=== PATIENT | female | born 1970 | race Two or more races ===

== ENCOUNTER 2021-06-09 23:48 | Emergency (ER) | payer OTHER ==
[~2021-06-09] VITALS: Ht 149.9 cm; Wt 104.3 kg
[2021-06-10] MEDS ORDERED: PROAIR RESPICL90 MCG IH (00:09)
[2021-06-10] MEDS ORDERED: ZESTRIL2.5 MG PO (00:09)
[2021-06-10] MEDS ORDERED: ACID REDUCER20 M1 PO (00:10)
[2021-06-10] MEDS ORDERED: CLONAZEPAM1 GM PO (00:10)
[2021-06-10] MEDS ORDERED: PEPCID20 MG PO (00:10)
[2021-06-10] MEDS ORDERED: GRALISE600 MG PO (00:10)
[2021-06-10] MEDS ORDERED: SYMBICORT 16010.2 GM IH (03:22)
[2021-06-10] MEDS ORDERED: ALBUTEROL2.5 MG/3 M IH (03:22)
[2021-06-10] MEDS ORDERED: ZYNCOF 20-400120 ML PO (03:22)
== END 2021-06-10 03:36 | disposition home or self-care (01) ==
LOC: ER 23:48
DX: J40 Bronchitis, not specified as acute or chronic (principal); Z11.52 Encounter for screening for COVID-19

== ENCOUNTER → 2022-02-11 | Emergency (ER) | payer OTHER ==
[~2022-02-11] VITALS: Ht 152.4 cm; Wt 113.4 kg
[~2022-02-11] MED LIST: ACID REDUCER20 M1 PO; ALBUTEROL2.5 MG/3 M IH; BREZTRI AEROS10.7 GM; CLONAZEPAM1 GM PO; GRALISE600 MG PO; PEPCID20 MG PO; PROAIR RESPICL90 MCG IH; SYMBICORT 16010.2 GM IH; ZESTRIL2.5 MG PO; ZYNCOF 20-400120 ML PO
== END | disposition home or self-care (01) ==
LOC: ER
DX: M79.671 Pain in right foot (principal); M20.11 Hallux valgus (acquired), right foot; M79.604 Pain in right leg; M79.605 Pain in left leg

== ENCOUNTER 2022-02-12 07:54 | Emergency (ER) | payer OTHER ==
[~2022-02-12] VITALS: Ht 152.4 cm; Wt 108.9 kg
== END 2022-02-12 11:38 | disposition home or self-care (01) ==
LOC: ER 07:54
DX: I87.2 Venous insufficiency (chronic) (peripheral) (principal); Z88.6 Allergy status to analgesic agent; Z88.0 Allergy status to penicillin; Z91.013 Allergy to seafood; I10 Essential (primary) hypertension

== ENCOUNTER 2022-02-21 18:07 | Emergency (ER) | payer OTHER ==
[~2022-02-21] VITALS: Ht 152.4 cm; Wt 90.7 kg
== END 2022-02-21 22:52 | disposition home or self-care (01) ==
LOC: ER 18:07
DX: A08.39 Other viral enteritis (principal); I10 Essential (primary) hypertension; Z88.0 Allergy status to penicillin; Z91.013 Allergy to seafood

== ENCOUNTER 2022-11-08 13:32 | Emergency (ER) | payer OTHER ==
[~2022-11-08] VITALS: Ht 149.9 cm; Wt 108.0 kg
== END 2022-11-08 18:06 | disposition home or self-care (01) ==
LOC: ER 13:32
DX: M94.0 Chondrocostal junction syndrome [Tietze] (principal); M62.838 Other muscle spasm; M77.31 Calcaneal spur, right foot; M77.32 Calcaneal spur, left foot; R53.81 Other malaise; I10 Essential (primary) hypertension; Z88.0 Allergy status to penicillin; Z88.6 Allergy status to analgesic agent; Z91.013 Allergy to seafood

== ENCOUNTER 2023-05-19 02:50 | Emergency (ER) | payer OTHER ==
[~2023-05-19] VITALS: Ht 149.9 cm; Wt 104.3 kg
[2023-05-19 09:05] LABS: HEMATOCRIT 33.7 % (36.0-45.00); HEMOGLOBIN 11.1 g/dL (12.0-15.00); MEAN CELL VOLUME 84.6 fL (80.00-100.00); MEAN CORPUSCULAR HEMOGLOBIN 27.8 pg (27.00-32.0); MEAN CORPUSCULAR HGB CONC 32.8 g/dl (32.0-36.0); PLATELET COUNT 328 K/uL (150-450); RED BLOOD COUNT 3.98 M/uL (4.00-6.00); RED CELL DISTRIBUTION WIDTH 14.5 % (11.5-14.5)
[2023-05-19 11:17] LABS: ABG PH 7.429 (7.35-7.45); ABG PO2 92.1 mmHg (80-100); BASE EXCESS 0 mmol/l; SaO2 97.4 %
[2023-05-19 11:18] LABS: Tco2 25.1 mmol/l; allen test SATISFACTORY; o2 21 %; puncture site RADIAL LEFT
== END 2023-05-19 12:50 | disposition home or self-care (01) ==
LOC: ER 02:50
PROVIDERS: General Practice
DX: J45.901 Unspecified asthma with (acute) exacerbation (principal); Z88.6 Allergy status to analgesic agent; Z88.0 Allergy status to penicillin; Z91.013 Allergy to seafood; Z20.822 Contact with and (suspected) exposure to COVID-19

== ENCOUNTER 2024-05-09 14:53 | Emergency (ER) | payer OTHER ==
[~2024-05-09] VITALS: Ht 149.9 cm; Wt 113.4 kg
[2024-05-09 15:18] VITALS: BP 116/67; O2SAT 99
[2024-05-09] MEDS ORDERED: FAMOTIDINE/PF 20 MG in 0.9 % SODIUM CHLORIDE 8 ML IV PUSH STA (16:23)
[2024-05-09] MEDS ORDERED: ONDANSETRON HCL 2 MG/ML VIAL IV ONE (16:30)
[2024-05-09] MEDS ORDERED: DIPHENOXYLATE HCL/ATROPINE 1 UDTAB TABLET PO ONE (16:30)
[2024-05-09] MEDS ORDERED: 0.9 % SODIUM CHLORIDE 1,000 ML IV SCH (16:30)
[2024-05-09 17:06] LABS: HEMATOCRIT 35.8 % (36.0-45.00); HEMOGLOBIN 11.4 g/dL (12.0-15.00); MEAN CELL VOLUME 82.4 fL (80.00-100.00); MEAN CORPUSCULAR HEMOGLOBIN 26.2 pg (27.00-32.0); MEAN CORPUSCULAR HGB CONC 31.8 g/dl (32.0-36.0); PLATELET COUNT 246 K/uL (150-450); RED BLOOD COUNT 4.34 M/uL (4.00-6.00)
[2024-05-09 17:17] LABS: URINE APPEARANCE Cloudy; URINE BILIRRUBIN Negative (NEGATIVE); URINE BLOOD Negative; URINE COLOR Yellow; URINE GLUCOSE Negative (NEGATIVE); URINE KETONE Negative (NEGATIVE); URINE LEUKOCYTE Negative; URINE NITRATE Negative; URINE PROTEIN Negative (NEGATIVE); URINE UROBILINOGEN 0.2 E.U./dl
[2024-05-09 17:18] LABS: URINE BACTERIA 777.2 uL (0.0-1933); URINE EPITHELIAL CELLS 21.5 uL (0.0-38.8); URINE RBC 17.6 uL (0.0-20.8)
[2024-05-09 17:27] LABS: ALBUMIN 3.3 gm/dL (3.4-5.0); BILIRUBIN TOTAL 0.2 mg/dL (0.3-1.2); CALCIUM 9.3 mg/dL (8.5-10.1); CREATININE SERUM 0.51 mg/dL (0.55-1.02); GFR 125.67; POTASSIUM 3.6 mEq/L (3.5-5.1); TOTAL PROTEIN 7.3 gm/dL (6.4-8.2)
[2024-05-09 17:28] LABS: URINE CAST 0.14 uL (0.0-1.40)
[2024-05-09] MEDS ORDERED: LEVSIN/SL0.125 MG SL (19:25)
[2024-05-09] MEDS ORDERED: PEPCID AC20 MG PO (19:25)
[2024-05-09] MEDS ORDERED: ONDANSETRON ODT8 MG PO (19:25)
[2024-05-09] MEDS ORDERED: INTESTINEX680 M1 PO (19:25)
== END 2024-05-09 19:39 | disposition home or self-care (01) ==
LOC: ER 14:55
PROVIDERS: General Practice
DX: R10.32 Left lower quadrant pain (principal); Z88.0 Allergy status to penicillin; Z91.013 Allergy to seafood; Z88.6 Allergy status to analgesic agent; K57.32 Diverticulitis of large intestine without perforation or abscess without bleeding; I10 Essential (primary) hypertension; Z20.822 Contact with and (suspected) exposure to COVID-19

== ENCOUNTER 2024-07-02 15:03 | Inpatient (IN) | payer OTHER ==
[~2024-07-02] VITALS: Ht 149.9 cm; Wt 113.4 kg
[~2024-07-02 15:03] MED LIST changes: +INTESTINEX680 M1 PO; +LEVSIN/SL0.125 MG SL; +ONDANSETRON ODT8 MG PO; +PEPCID AC20 MG PO
[2024-07-02] MEDS ORDERED: GLUMETZA500 MG PO (16:00)
--- NOTE | 2024-07-02 16:04 | NUR ---
PACIENTE ALERTA Y ORIENTADA X3. REFIERE VENIR POR TOS SECA PRODUCTIVA Y MALESTAR GENERAL. SE ESTIMAN VITALES Y SE UBICA. PACIENTE REFIERE QUE SALIO POSITIVA A INFLUENZA HACE UNOS FAIRCHILD.
[2024-07-02] MEDS ORDERED: 0.9 % SODIUM CHLORIDE 1,000 ML IV STA (17:07)
[2024-07-02] MEDS ORDERED: BUDESONIDE 0.5 MG/2 ML AMPUL.NEB IH STA (17:08)
[2024-07-02] MEDS ORDERED: IPRATROPIUM BROMIDE 0.5 MG/2.5 ML AMPUL.NEB IH STA (17:08)
[2024-07-02] MEDS ORDERED: LEVALBUTEROL HCL 1.25 MG/3 ML SOLUTION IH SCH (17:15)
[2024-07-02 18:03] LABS: HEMATOCRIT 38.4 % (36.0-45.00); HEMOGLOBIN 12.5 g/dL (12.0-15.00); MEAN CELL VOLUME 81.1 fL (80.00-100.00); MEAN CORPUSCULAR HEMOGLOBIN 26.5 pg (27.00-32.0); MEAN CORPUSCULAR HGB CONC 32.7 g/dl (32.0-36.0); PLATELET COUNT 339 K/uL (150-450); RED BLOOD COUNT 4.73 M/uL (4.00-6.00); RED CELL DISTRIBUTION WIDTH 14.4 % (11.5-14.5)
[2024-07-02] MEDS ORDERED: LEVALBUTEROL HCL 1.25 MG/3 ML SOLUTION IH ONE (18:09)
[2024-07-02] MEDS ORDERED: BUDESONIDE 0.5 MG/2 ML AMPUL.NEB IH ONE (18:09)
[2024-07-02] MEDS ORDERED: IPRATROPIUM BROMIDE 0.5 MG/2.5 ML AMPUL.NEB IH ONE (18:10)
[2024-07-02 18:16] LABS: ABG PH 7.438 (7.35-7.45); ABG PO2 77.4 mmHg (80-100); ABG pCO2 37.9 mmHg (35-45); BASE EXCESS 1.1 mmol/l; BICARBONATE 25.1 mmol/l (23-25); SaO2 95.8 %; Tco2 26.2 mmol/l
[2024-07-02 18:29] LABS: allen test SATISFACTORY; puncture site RADIAL RIGHT
[2024-07-02 18:30] LABS: o2 21 %
[2024-07-02 19:14] LABS: CALCIUM 9.9 mg/dL (8.5-10.1); CREATININE SERUM 0.68 mg/dL (0.55-1.02); GFR 90.17; POTASSIUM 3.58 mEq/L (3.5-5.1)
[2024-07-02] MEDS ORDERED: levoFLOXacin IN DEXTROSE 5 % 5 MG/ML PIGGYBAG IV STA (19:59)
[2024-07-02] MEDS ORDERED: METHYLPREDNISOLONE SOD SUCC 125 MG VIAL IV STA (19:59)
[2024-07-02] MEDS ORDERED: METHYLPREDNISOLONE SOD SUCC 125 MG VIAL ONE (20:16)
[2024-07-02] MEDS ORDERED: WATER FOR INJ.,BACTERIOSTATIC 30 ML VIAL IJ ONE (20:18)
[2024-07-03] MEDS ORDERED: DEXTROSE 50 % IN WATER 0.5 G/ML DISP.SYRIN IV PRN (00:45)
[2024-07-03] MEDS ORDERED: ACETAMINOPHEN 325 MG TABLET PO PRN (00:45)
[2024-07-03] MEDS ORDERED: INSULIN LISPRO 1,000 UNIT/10 ML UNITS SUBCUTANEO PRN (00:45)
[2024-07-03] MEDS ORDERED: 0.9 % SODIUM CHLORIDE 1,000 ML IV SCH (00:45)
[2024-07-03 01:00] VITALS: BP 122/80; O2SAT 97
[2024-07-03] MEDS ORDERED: IPRATROPIUM/ALBUTEROL SULFATE 3 ML AMPUL.NEB IH SCH (01:00)
[2024-07-03 04:33] VITALS: BP 135/75; O2SAT 97
[2024-07-03] MEDS ORDERED: METHYLPREDNISOLONE SOD SUCC 40 MG VIAL IV SCH (06:00)
[2024-07-03] MEDS ORDERED: LOSARTAN/HYDROCHLOROTHIAZIDE 1 TAB TABLET PO SCH (09:00)
[2024-07-03 09:07] VITALS: BP 150/80; O2SAT 97
[2024-07-03] MEDS ORDERED: VANCOMYCIN HCL 1,000 MG VIAL IV NR (10:30)
[2024-07-03] MEDS ORDERED: LACTOBACILLUS ACIDOPHILUS 1 CAP CAP PO SCH (17:00)
[2024-07-03 17:23] VITALS: BP 138/81; O2SAT 98
[2024-07-03 17:46] LABS: PH,URINE 7.5 (5.0-8.0); URINE APPEARANCE Clear; URINE BILIRRUBIN Negative (NEGATIVE); URINE BLOOD Negative; URINE COLOR Yellow; URINE GLUCOSE Negative (NEGATIVE); URINE KETONE Negative (NEGATIVE); URINE LEUKOCYTE Negative; URINE NITRATE Negative; URINE PROTEIN Negative (NEGATIVE); URINE UROBILINOGEN 0.2 E.U./dl
[2024-07-03 17:52] LABS: URINE BACTERIA 933.7 uL (0.0-1933); URINE EPITHELIAL CELLS 15.3 uL (0.0-38.8); URINE RBC 4.5 uL (0.0-20.8)
[2024-07-03 17:57] LABS: URINE WBC 1.5 uL (0.0-23.2)
[2024-07-03] MEDS ORDERED: VANCOMYCIN HCL 5 MG/ML REDILUIDO IV SCH (21:00)
[2024-07-03] MEDS ORDERED: GABAPENTIN 300 MG CAPSULE PO SCH (21:00)
[2024-07-03] MEDS ORDERED: LINEZOLID IN DEXTROSE 5% 600 MG/300 ML PIGGYBAG IV SCH (21:00)
[2024-07-04 00:56] VITALS: BP 118/61
[2024-07-04 07:04] LABS: HEMATOCRIT 32.6 % (36.0-45.00); HEMOGLOBIN 11.1 g/dL (12.0-15.00); MEAN CELL VOLUME 81.7 fL (80.00-100.00); MEAN CORPUSCULAR HEMOGLOBIN 27.9 pg (27.00-32.0); MEAN CORPUSCULAR HGB CONC 34.2 g/dl (32.0-36.0); PLATELET COUNT 261 K/uL (150-450); RED BLOOD COUNT 3.99 M/uL (4.00-6.00); RED CELL DISTRIBUTION WIDTH 16.9 % (11.5-14.5)
[2024-07-04 07:43] LABS: INR 0.98; PARTIAL THROMBOPLASTIN TIME 22.2 SECONDS (22.0-34.0); PROTHROMBIN TIME 10.7 SECONDS (9.0-11.5)
[2024-07-04 07:50] LABS: HEMOGLOBIN 11.4 g/dL (12.0-15.00); MEAN CELL VOLUME 82.4 fL (80.00-100.00); MEAN CORPUSCULAR HEMOGLOBIN 26.7 pg (27.00-32.0); MEAN CORPUSCULAR HGB CONC 32.4 g/dl (32.0-36.0); PLATELET COUNT 306 K/uL (150-450); RED BLOOD COUNT 4.25 M/uL (4.00-6.00); RED CELL DISTRIBUTION WIDTH 14.6 % (11.5-14.5)
[2024-07-04 08:03] LABS: ALBUMIN 3.3 gm/dL (3.4-5.0); ALKALINE PHOSPHATASE 71 U/L (50-136); ALT/SGPT 58 U/L (12-78); ANION GAP 12 (10.0-20.0); AST/SGOT 28 U/L (15-37); BILIRUBIN,CONJUGATED < 0.10 mg/dL (0.0-0.2); BLOOD UREA NITROGEN 15 mg/dL (7-18); BUN CREA RATIO 24 (7.0-25.0); CALCIUM 9.2 mg/dL (8.5-10.1); CARBON DIOXIDE 27 mEq/L (21-32); CHLORIDE 106 mmol/L (98-107); CHOL HDL RATIO 4.2 (0-5.0); CHOLESTEROL 174 mg/dL (0-200); CREATININE SERUM 0.62 mg/dL (0.55-1.02); GFR 100.31; GLOBULINA 3.6 G/DL (2.4-3.5); GLUCOSE FASTING 174 mg/dL (65-100); HDL 41 mg/dl (40-60); LDL 105 mg/dl (0-130); OSMOLALITY SERUM 284 MOSM/KG (275-295); PHOSPHOROUS 3.4 mg/dL (2.5-4.9); POTASSIUM 4.74 mEq/L (3.5-5.1); SODIUM 140 mmol/L (136-145); TOTAL IRON BINDING CAPACITY 284 ug/dl (250-450); TOTAL PROTEIN 6.9 gm/dL (6.4-8.2); TRIGLYCERIDES 138 mg/dL (0-150); VLDL 27 (0-39)
[2024-07-04] MEDS ORDERED: levoFLOXacin IN DEXTROSE 5 % 5 MG/ML PIGGYBAG IV SCH (09:00)
[2024-07-04 09:52] VITALS: BP 121/71; O2SAT 95
[2024-07-04] MEDS ORDERED: CLONAZEPAM 1 MG TABLET PO SCH ×2 (10:52→21:00)
[2024-07-04] MEDS ORDERED: GUAIFENESIN 200 MG/10 ML BLIST.PACK PO PRN (11:15)
[2024-07-04] MEDS ORDERED: RINGERS SOLUTION,LACTATED 1,000 ML IV SCH (15:15)
[2024-07-04] MEDS ORDERED: BENZONATATE 100 MG CAPSULE PO PRN (15:30)
[2024-07-04 16:39] VITALS: BP 122/64; O2SAT 100
[2024-07-04] MEDS ORDERED: METHYLPREDNISOLONE SOD SUCC 40 MG VIAL IV SCH ×2 (17:00→21:00)
[2024-07-04] MEDS ORDERED: GABAPENTIN 600 MG TABLET PO SCH (17:00)
[2024-07-04] MEDS ORDERED: IRON FUM,PS/FOLIC/BCOMP,C NO.9 1 CAP CAPSULE PO SCH (17:00)
[2024-07-05 01:40] VITALS: BP 111/68
[2024-07-05 05:12] LABS: HEMATOCRIT 34.7 % (36.0-45.00); MEAN CELL VOLUME 82.9 fL (80.00-100.00); MEAN CORPUSCULAR HGB CONC 32.5 g/dl (32.0-36.0); PLATELET COUNT 349 K/uL (150-450); RED BLOOD COUNT 4.18 M/uL (4.00-6.00); RED CELL DISTRIBUTION WIDTH 14.5 % (11.5-14.5)
[2024-07-05 05:14] LABS: HEMOGLOBIN 11.3 g/dL (12.0-15.00)
[2024-07-05 08:44] VITALS: BP 132/66
[2024-07-05] MEDS ORDERED: POLYETHYLENE GLYCOL 3350 17 GM BLIST.PACK PO NR (13:00)
[2024-07-05 16:00] VITALS: BP 131/80; O2SAT 96
[2024-07-05] MEDS ORDERED: POLYETHYLENE GLYCOL 3350 17 GM BLIST.PACK PO SCH (17:00)
[2024-07-05] MEDS ORDERED: ORPHENADRINE CITRATE 100 MG TABLET PO PRN (18:15)
[2024-07-05] MEDS ORDERED: DOCUSATE SODIUM 100MG CAP PO NR (19:00)
[2024-07-06 00:38] VITALS: BP 116/66
[2024-07-06 08:58] VITALS: BP 146/84; O2SAT 98
[2024-07-06] MEDS ORDERED: DOCUSATE SODIUM 100MG CAP PO SCH (09:00)
[2024-07-06] MEDS ORDERED: levoFLOXacin 750 MG TABLET PO SCH (09:00)
[2024-07-06] MEDS ORDERED: ENOXAPARIN SODIUM 40 MG/0.4 ML SYRINGE SUBCUTANEO SCH (11:32)
[2024-07-06] MEDS ORDERED: MULTIVIT-MIN/IRON FUM/FOLIC AC 1 TAB TABLET PO SCH (11:33)
[2024-07-06] MEDS ORDERED: Cyanocobalamin/Mecobalamin 1 TAB.SL SL SCH (11:33)
[2024-07-06] MEDS ORDERED: IRON FUM,PS/FOLIC/BCOMP,C NO.9 1 CAP CAPSULE PO SCH (11:33)
[2024-07-06] MEDS ORDERED: PANTOPRAZOLE SODIUM 40 MG TABLET.DR PO SCH (11:33)
[2024-07-06 18:04] VITALS: BP 140/77; O2SAT 97
[2024-07-07] VITALS: BP 122/76; O2SAT 95
[2024-07-07 06:46] LABS: MEAN CELL VOLUME 83.4 fL (80.00-100.00); MEAN CORPUSCULAR HEMOGLOBIN 26.9 pg (27.00-32.0); MEAN CORPUSCULAR HGB CONC 32.2 g/dl (32.0-36.0); PLATELET COUNT 381 K/uL (150-450); RED BLOOD COUNT 4.07 M/uL (4.00-6.00); RED CELL DISTRIBUTION WIDTH 14.4 % (11.5-14.5)
[2024-07-07 07:16] LABS: BILIRUBIN TOTAL 0.24 mg/dL (0.3-1.2); CALCIUM 9.3 mg/dL (8.5-10.1); CREATININE SERUM 0.56 mg/dL (0.55-1.02); GFR 112.81; GLOBULINA 3.5 G/DL (2.4-3.5); POTASSIUM 4.83 mEq/L (3.5-5.1); TOTAL PROTEIN 6.5 gm/dL (6.4-8.2)
[2024-07-07 08:26] VITALS: BP 125/70
[2024-07-07 17:14] VITALS: BP 140/79; O2SAT 97
[2024-07-08] VITALS: BP 119/96; O2SAT 97
[2024-07-08] MEDS ORDERED: METHYLPREDNISOLONE SOD SUCC 40 MG VIAL IV SCH (09:00)
[2024-07-08 09:30] VITALS: BP 144/75
[2024-07-08] MEDS ORDERED: LINEZOLID600 MG PO (13:31)
[2024-07-08] MEDS ORDERED: SYMBICORT 80/10.2 GM IH (13:32)
[2024-07-08] MEDS ORDERED: LEVOFLOXACIN750 MG PO (13:32)
[2024-07-08] MEDS ORDERED: INTESTINEX680 M1 PO (13:32)
[2024-07-08] MEDS ORDERED: IPRAT-ALBUT 0.5-3 ML IH (13:33)
[2024-07-08] MEDS ORDERED: INTEGRA PLUS C1 EACH PO (13:34)
[2024-07-08] MEDS ORDERED: NEURONTIN600 MG PO (13:34)
[2024-07-08] MEDS ORDERED: BENZONATATE100 MG PO (13:34)
[2024-07-08] MEDS ORDERED: LOSARTAN-HCTZ1 EAC2 PO (13:34)
[2024-07-08] MEDS ORDERED: CLONAZEPAM1 MG PO (13:34)
[2024-07-08] MEDS ORDERED: PANTOPRAZOLE SO40 MG PO (13:35)
[2024-07-08 17:29] VITALS: BP 119/57; O2SAT 96
== END 2024-07-08 16:57 | disposition home or self-care (01) | DRG 195 ==
LOC: ER 15:03 → MEDI 07-03 00:28
PROVIDERS: Emergency Medicine; General Practice; ADMIT Internal Medicine; ATTEND Internal Medicine
PROC: BB24ZZZ Computerized Tomography (CT Scan) of Bilateral Lungs (ICD-10-PCS; principal; 2024-07-02)
PROC: 3E0F7GC Introduction of Other Therapeutic Substance into Respiratory Tract, Via Natural or Artificial Opening (ICD-10-PCS; 2024-07-03)
DX: J18.9 Pneumonia, unspecified organism (principal); E11.9 Type 2 diabetes mellitus without complications; Z88.0 Allergy status to penicillin; I10 Essential (primary) hypertension; K59.00 Constipation, unspecified; G47.33 Obstructive sleep apnea (adult) (pediatric); Z79.4 Long term (current) use of insulin; Z87.891 Personal history of nicotine dependence

== ENCOUNTER → 2024-12-18 | Emergency (ER) | payer OTHER ==
[~2024-12-18] VITALS: Ht 149.9 cm; Wt 90.7 kg
[~2024-12-18] MED LIST changes: +BENZONATATE100 MG PO; +CLONAZEPAM1 MG PO; +FAMOtidine 10 MG/ML (4ML VIAL) IV ONE; +GLUMETZA500 MG PO; +INTEGRA PLUS C1 EACH PO; +IPRAT-ALBUT 0.5-3 ML IH; +LEVOFLOXACIN750 MG PO; +LINEZOLID600 MG PO; +LOSARTAN-HCTZ1 EAC2 PO; +METOCLOPRAMIDE HCL 10 MG in DEXTROSE 5 % IN WATER 50 ML IV ONE; +METOCLOPRAMIDE10 MG PO; +NEURONTIN600 MG PO; +ONDANSETRON HCL 2 MG/ML VIAL IV ONE; +ORPHENADRINE CITRATE 100 MG TABLET PO ONE; +PANTOPRAZOLE SO40 MG PO; +SYMBICORT 80/10.2 GM IH
== END | disposition home or self-care (01) ==
LOC: ER 14:10
DX: T50.905A Adverse effect of unspecified drugs, medicaments and biological substances, initial encounter (principal); Y92.89 Other specified places as the place of occurrence of the external cause; M54.50 Low back pain, unspecified; E11.9 Type 2 diabetes mellitus without complications; Z79.84 Long term (current) use of oral hypoglycemic drugs; I10 Essential (primary) hypertension; Z88.6 Allergy status to analgesic agent; Z88.0 Allergy status to penicillin; Z91.013 Allergy to seafood